=== PATIENT | male | born 1965 | race Caucasian/White ===

== ENCOUNTER 2018-09-27 12:20 | Emergency (ER) | payer OTHER, SELFPAY ==
[2018-09-27 12:21] VITALS: BP 157/89; PULSE 77; RESP 18; TEMP 36.1; O2SAT 97; BMI 31.5
--- NOTE | 2018-09-27 12:40 | RAD_ITS ---
STUDY: X-RAY CHEST REASON FOR EXAM: Male, 53 years old. Left arm pain and chest pain. TECHNIQUE: Single AP portable view of the chest. COMPARISON: None. FINDINGS: The lungs are clear and expanded. Scattered calcified granulomas. There is no demonstrated pleural abnormality. Normal size heart. Normal mediastinum and dione. Normal visualized pulmonary arteries. There is atherosclerotic tortuosity of the aortic arch and descending thoracic aorta. There are diffuse degenerative changes of the visualized thoracic spine. Normal visualized ribs, clavicles, and shoulders. There is no demonstrated abnormality of the visualized soft tissue structures of the upper abdomen. RAD/Chest 1 View (Portable) IMPRESSION: No acute abnormality is seen. Electronically Signed: Alexander Villavicencio, at 13:04 EDT , Service support ,
--- NOTE | 2018-09-27 12:40 | EKG12_ITS ---
Test Reason : CHEST TIGHTNESS Blood Pressure : / mmHG Vent. Rate : 067 BPM Atrial Rate : 067 BPM P-R Int : 144 ms QRS Dur : 098 ms QT Int : 416 ms P-R-T Axes : 030 036 029 degrees QTc Int : 439 ms Normal sinus rhythm Normal ECG Confirmed by RASHI GUTIERREZ, ALBERTINA ([id number]), online content editor TEZ BINGHAM ([id number]) on 09/29/2018 9:14:25 AM Referred By: KITA Confirmed By:ALBERTINA MARKHAM MD
[2018-09-27 13:06] LABS: Absolute Lymphocyte Count 3.21 X10^3/ul (0.83-4.51); Absolute Neutrophil Count 5.5 X10^3/uL (2.0-7.7); Basophil# 0.04 X10^3/uL; Basophil% 0.4 % (0-1); Hematocrit 46.1 % (40-54); Hemoglobin 15.8 g/dl (13.0-16.5); Lymphocyte # 3.21 X10^3/ul (4.0); Lymphocyte % 32.6 % (19-41); Mean Corp Hgb Conc 34.3 g/gl (32-36); Mean Corpuscular Hgb 30.3 pg (27.0-32.0); Mean Corpuscular Volume 88.3 fL (80-94); Mean Platelet Vol. 11.2 fl (6.2-12.0); Monocyte# 0.71 X10^3/uL; Monocyte% 7.2 % (0-10); Neutrophil # 5.52 X10^3/uL (2.7-7.7); POSITIVE COUNT NO; POSITIVE DIFFERENTIAL NO; POSITIVE MORPHOLOGY NO; Platelet Count 218 K/mm3 (150-450); RBC Distribution Width SD 41.9 fl (35.1-43.9); Red Blood Count 5.22 M/mm3 (4.6-6.2); White Blood Count 9.9 K/mm3 (4.4-11.0)
[2018-09-27 13:21] LABS: Anion Gap 6 (5-15); BUN 17 mg/dL (7-18); BUN/Creat Ratio 14.5 RATIO (10-20); Calcium,Total 8.4 mg/dL (8.5-10.1); Chloride 106 mmol/L (98-107); Creatinine, Serum 1.17 mg/dL (0.70-1.30); EST Glomerular Filtration Rate 70 mL/min (>60); Est Glom Filt Rate - Afr Amer 84 mL/min (>60); Estimated Creatinine Clearance 76.26 ml/min; Glucose 116 mg/dL (74-106); Potassium 3.7 mmol/L (3.5-5.1); Sodium Level 142 mmol/L (136-145)
[2018-09-27] MEDS: Aspirin 81 MG TAB.CHEW 324 MG PO (13:27)
[2018-09-27] MEDS: 0.9% Normal Saline 1,000 ML 150 ML IV (13:28)
[2018-09-27 13:29] VITALS: BP 150/94; PULSE 61; RESP 16; O2SAT 98
--- NOTE | 2018-09-27 13:31 | EKG12_ITS ---
Test Reason : REPEAT Blood Pressure : / mmHG Vent. Rate : 059 BPM Atrial Rate : 059 BPM P-R Int : 156 ms QRS Dur : 104 ms QT Int : 438 ms P-R-T Axes : 019 027 030 degrees QTc Int : 433 ms Sinus bradycardia Inferior infarct , age undetermined Abnormal ECG Confirmed by RASHI GUTIERREZ, ALBERTINA ([id number]), newspaper editor managing TEZ BINGHAM ([id number]) on 09/29/2018 9:14:05 AM Referred By: KITA Confirmed By:ALBERTINA MARKHAM MD
[2018-09-27 13:33] VITALS: O2SAT 96
[2018-09-27 15:07] VITALS: BP 158/103; PULSE 63; RESP 15; O2SAT 96
--- NOTE | 2018-09-27 16:52 | ED.VISSUMM ---
- ER Visit Summary Date of Service: 09/27/18 Chief Complaint: Chest pain History of Present Illness: The patient is a 53 M with no primary care physician. He reports he has chest pain began hour and a half ago while he was at rest. Spent a continuous cramping pain that waxes and wanes. 7 to 10 hours and 4-10 currently. Is worsened by nothing including exertion, movement, breathing. Is also relieved by nothing. Does report that he is mildly short of breath with this. He denies any associated nausea, vomiting, or diaphoresis. He denies any chest pain change in dyspnea exertion in the past month. No history of DVT. No ankle swelling or calf pain. Physical Examination: Vitals: Stable. Afebrile. General: Well-nourished and well-developed. Head: Normocephalic atraumatic. Neck: Supple, no lymphadenopathy. No JVD. Nontender. Cardiovascular: Regular rate and rhythm. No murmurs. Respiratory: No respiratory distress. Clear to auscultation bilaterally. Abdominal: Soft, nontender, nondistended, normal bowel sounds. No guarding, rebound, or peritoneal signs. Back: Nontender. Extremities: Nontender, no edema. Skin: Normal color, no rash. Neurologic: Alert and oriented ?3. Cranial nerves II through XII are intact. Normal strength and sensation. Psych: Normal affect. Test Results: EKG is sinus at 65 with no acute changes. Repeat EKG is unchanged. There is no old EKG for comparison. Chest x-ray shows no acute disease. CBC is normal. Chem-7 shows a glucose 116 calcium of 8.4. Troponin is negative. Repeat troponin is negative. Emergency Department Course and Treatment: Patient was treated with aspirin and is resting comfortably. He feels well and would like to go home. Treatment Plan: A prolonged discussion with patient at this time is does not rule out cardiac source of this. He understands this and would still like to go home. He will be discharged instructions to follow-up Dr. Eduardo Liu, who is next on list for no doc, as soon as possible. Return to emerge department for any worsening symptoms, shortness of breath, or other concerns. Disposition: To home in improved and stable condition. Impression: 1. Atypical chest pain. 2. JULIANA score of 1. This note was generated with [employer] dictation software. It may contain incorrect words, spelling, and punctuation that were not noted in review of the chart prior to signing ED Disposition - Plan for ED Patient: Instructions: ED Chest Pain Atypical Unkn Cause Referrals: Eduardo Menard MD [STAFF PHYSICIAN] - As soon as possible
[2018-09-27 17:03] VITALS: BP 158/104; PULSE 63; RESP 17; O2SAT 98
== END 2018-09-27 17:04 | disposition home or self-care (01) ==
LOC: ED 12:59
PROVIDERS: Emergency Provider Emergency Medicine
DX: R07.89 Other chest pain (principal); R05 Cough; R06.00 Dyspnea, unspecified; I10 Essential (primary) hypertension; Z72.0 Tobacco use
CPT/HCPCS: 71045; 80048; 84484; 85025; 93005; 96360; 96361; 99285; J7030; A4216

== ENCOUNTER 2022-09-13 08:25 | Emergency (ER) | payer BC, SELFPAY ==
[2022-09-13 08:27] VITALS: BP 154/96; PULSE 69; RESP 18; TEMP 36.6; O2SAT 100; BMI 33.3
--- NOTE | 2022-09-13 08:35 | EX.ED.DYSGE1 ---
HPI History of Present Illness Chief Complaint: Headache [facility] Medical History (Updated 09/13/22 @ 10:[address] Festus Chew, DO) Hypertension Home Medications metoclopramide HCl 5 mg tablet (Reglan) 5 mg PO Q8H PRN PRN nausea and vomiting 7 days #20 tabs 09/13/22 [Rx Last Taken Unknown] Allergy/AdvReac Type Severity Reaction Status Date / Time No Known Allergies Allergy Verified 09/13/22 08:27 Social History Smoking Status: Former smoker EXAM Physical Exam Const Vital Signs: 09/13/22 08:27 09/13/22 09:55 Temperature 97.8 F Temperature Source Temporal Pulse Rate 69 69 Respiratory Rate 18 19 H Blood Pressure 154/96 H 160/98 H Blood Pressure Mean 115 118 Pulse Ox 100 99 Oxygen Delivery Method Room Air [place] [facility] [place] Medical decision making narrative: HISTORY OF PRESENT ILLNESS: 57-year-old male here for cute onset headache approximately 6 hours prior to arrival. States headache was gradual in onset however it is severe and different from prior headaches he notes associated with dizziness, nausea and sensitivity to light. Denies history of migraines. Denies any recent trauma. Patient denies sudden onset or thunderclap headache, denies maximal intensity within 1 minute, vomiting, neck pain or stiffness, changes in vision, fever, history malignancy, syncope, seizures. REVIEW OF SYSTEMS: Pertinent positives: Headache, nausea dizziness Pertinent negatives: Syncope, head trauma, focal weakness PHYSICAL EXAM: Nursing triage notes reviewed, Vital signs reviewed Constitutional: please see mdm HENT: MMM Eyes: Pupils equal round and reactive to light, Extraocular muscles intact Neck: No stridor, no JVD, full neck ROM Lungs: Clear to auscultation, No wheezing or rales. No increased work of breathing, no conversational dyspnea, no accessory muscle use, no nasal flaring. No respiratory distress noted Heart: Regular rate and rhythm, No murmurs, No rubs and No gallops, 2+ distal pulses (radial, femoral, posterior tibial) in all extremities Abdomen: Soft, there is no tenderness, rigidity, rebound or guarding, no obvious peritoneal signs, no palpable pulsatile abdominal masses, no auscultated abdominal bruit : No CVAT Extremities: No edema Neuro: Alert and oriented x3, neuro exam at baseline, cranial nerves II through XII are intact. No pain with extraocular muscle movement. There is negative test of skew. Normal speech. 5 of 5 strength in upper and lower extremities in flexion extension. Intact sensation to light touch in upper and lower extremity dermatomes. No truncal or extremity ataxia. No dysdiadochokinesia. Normal gait. 2+ reflexes. No meningeal signs. Negative Babinski. NIH of 0 Skin: No rash or lesions noted MEDICAL DECISION MAKING: Chief Complaint: Headache External records reviewed: No recent advanced imaging of the head Factors affecting care: BPH, hypertension, hyperlipidemia, depression Social determinants of health: Former smoker History obtained from others: None Consults: none ALL IMAGES HAVE BEEN PERSONALLY REVIEWED AND INTERPRETED BY MYSELF. [facility] Narrative: Patient was hemodynamically stable, afebrile, nontoxic-appearing. There are no focal neurologic deficits noted on my exam I considered the following differential diagnosis: Primary headache, life-threatening secondary headache I obtained a CT scan of the head rule out obvious intracranial bleed or mass. Patient's symptoms started within a reasonable monitor time for CT scan to be highly sensitive for ruling out life-threatening bleeding in the brain. Patient had no fever or infectious symptoms. He had a negative Kernig's present ski sign. A low suspicion for meningitis at this time. He had no carotid bruits to suggest carotid artery dissection. It is summertime he is not using his heater and I have a low suspicion for carbon monoxide poisoning. I gave the patient symptomatic treatment the form Reglan, Decadron and fluids. If CT scan is negative we will add on anti-inflammatories. I will perform a repeat neurologic exam. If intact patient will be discharged home with diagnosis of primary headache likely migraine with prescription for Reglan and neurology follow-up. Total critical care time today provided was at least 0 minutes. This excludes separately billable procedures. There was a high probability of clinically significant/life threatening deterioration in the patient's condition which required my urgent intervention. Shared decision making: I will have a discussion with the patient and or visitors regarding risk/benefits of further testing or admission. They will be made aware of of the risk/benefits inherent in this decision they will be given the opportunity to voice understanding. Radiography Diagnostic Testing: Clinical Impression(s) from Imaging Studies Brain CT 09/13/22 08:51 IMPRESSION: No acute intracranial process. Electronically Signed: Brittani Parada MD at 9:30 EDT , Treatment and Re-Evaluation :: Repeat neurologic exam remained intact the patient is approved for discharge home. The patient looks great and is in no significant objective discomfort currently. The patient's headache is non-specific. Exam is unremarkable. The patient is in no distress and the patient?s neurological exam is non-focal, neck is supple and without meningismus. The headache is not consistent with meningitis or infection, nor is it consistent with intracranial bleed (SAH etc.), carotid dissection, nor mass by history and examination. Medication and outpatient follow-up was instructed. The patient was instructed to return as needed or if symptoms changed or worsened, fever developed or inability to tolerate fluids. The patient agreed with plan. Discharge Plan Triage Chief Complaint: Headache ED Provider: Festus Chew Dx/Rx/DC Orders Clinical Impression: Headache Instructions: ED Headache Unspecified Prescriptions: New metoclopramide HCl [Reglan] 5 mg tablet 5 mg PO Q8H PRN PRN (Reason: nausea and vomiting) 7 Days Qty: 20 0RF Stand Alone Forms: ED Work / School Excuse Primary Care Provider: Care Physician,No Primary Referrals: Braulio Lennon MD [Med Staff - Senior Paralegal] - Activity Restrictions/Additional Instructions: Thank you for trusting us with your care today! Please take Tylenol (2 pills, 650 mg), ibuprofen (2 pills, 400 mg) every 6 hours as needed for pain and fever control. Please take Reglan every 8 hours as needed for breakthrough headache. Please return to the emergency department if your symptoms change or worsen. Specifically if you lose vision, you develop loss of sensation or movement in your extremities, facial drooping, slurred speech or any other focal neurologic deficit. Please follow with your primary care physician for further outpatient evaluation and management. Disposition Disposition: Home, Self Care
--- NOTE | 2022-09-13 08:51 | CT_ITS ---
INDICATION: Pain EXAMINATION: CT BRAIN - CT Head or Brain W/O Contrast Injection TECHNIQUE: Multiple axial images were obtained of the head without intravenous contrast. A radiation dose optimization technique was used for this scan. IV Contrast dosage and agent: None. RADIATION DOSAGE (If Supplied By Facility): CTDIvol = ( 44.99 ) mGy, DLP = ( 829.85 ) mGycm COMPARISON: FINDINGS: BRAIN PARENCHYMA: No intra- or extra-axial hemorrhage. No evidence of acute infarct. No intracranial mass or mass effect. There is preservation of the hernandez/white matter interface. Posterior fossa structures are unremarkable. CSF SPACES: Appropriate for age. No hydrocephalus. Basal cisterns are patent. CALVARIUM, SKULL BASE, PARANASAL SINUSES AND MASTOID AIR CELLS: Clear. No discrete lytic or blastic abnormalities. ORBITS: Both globes, extraocular muscles, optic nerves and retrobulbar fat appear unremarkable. ASPECTS Score for Acute Strokes: 10 CT/Brain/Head without Contrast IMPRESSION: No acute intracranial process. Electronically Signed: Brittani Parada MD at 9:30 EDT ,
[2022-09-13] MEDS: 0.9% Normal Saline 1,000 ML 999 ML IV (09:01)
[2022-09-13] MEDS: dexAMETHasone 10 MG/ML Vial 6 MG IV (09:02)
[2022-09-13] MEDS: Metoclopramide 10 MG/2 ML Vial IV (09:03)
[2022-09-13] MEDS: Acetaminophen 325 MG Tablet 650 MG PO (09:52)
[2022-09-13] MEDS: Ketorolac 15 MG/ML Vial IV (09:52)
[2022-09-13 09:55] VITALS: BP 160/98; PULSE 69; RESP 19; O2SAT 99
== END 2022-09-13 10:49 | disposition home or self-care (01) ==
PROVIDERS: Emergency Provider Emergency Medicine; Visit Provider Emergency Medicine
DX: R51.9 Headache, unspecified (principal); I10 Essential (primary) hypertension; Z87.891 Personal history of nicotine dependence; E78.5 Hyperlipidemia, unspecified
CPT/HCPCS: 70450; 99283; J7030; A4216

== ENCOUNTER 2024-01-26 15:30 | Outpatient (RCR) | payer OTHER, SELFPAY | END 2024-01-26 19:00 | disposition home or self-care (01) | LOC: PT 15:30 | PROVIDERS: Referring Provider Orthopaedic Surgery; Visit Provider Orthopaedic Surgery | DX: S39.012D Strain of muscle, fascia and tendon of lower back, subsequent encounter (principal) | CPT/HCPCS: 97014; 97110; 97161; 97530; G0283 ==